=== PATIENT | male | born 1965 | race Caucasian/White ===

== ENCOUNTER → 2020-10-02 | Day surgery (SDC) | payer BC ==
[~2020-10-02] VITALS: Ht 168.9 cm; Wt 102.1 kg
[~2020-10-02] MED LIST: VITAMIN B-150 MG PO; VITAMIN D21250 MCG PO
== END | disposition home or self-care (01) ==
LOC: OR 09-18 09:45
DX: Z12.11 Encounter for screening for malignant neoplasm of colon (principal); C18.9 Malignant neoplasm of colon, unspecified; D12.6 Benign neoplasm of colon, unspecified; Z20.822 Contact with and (suspected) exposure to COVID-19; K64.4 Residual hemorrhoidal skin tags
CPT/HCPCS: J2250; J2704; J7120

== ENCOUNTER → 2020-10-27 | Outpatient (CLI) | payer BC | LOC: CT 10-16 10:00 | DX: C18.9 Malignant neoplasm of colon, unspecified (principal); R59.9 Enlarged lymph nodes, unspecified | CPT/HCPCS: 71260; Q9967 ==

== ENCOUNTER → 2020-12-27 | Day surgery (SDC) | payer BC | END | disposition home or self-care (01) | LOC: OR 06:17 | DX: C18.9 Malignant neoplasm of colon, unspecified (principal); I87.8 Other specified disorders of veins; E66.9 Obesity, unspecified; Z20.822 Contact with and (suspected) exposure to COVID-19; Z68.35 Body mass index [BMI] 35.0-35.9, adult; Z79.899 Other long term (current) drug therapy | CPT/HCPCS: 71045; 77001; C1769; C1788; J0690; J1100; J1642; J2250; J2405; J2704; J3010; J7040; J7120; U0002 ==

== ENCOUNTER → 2021-06-04 | Outpatient (CLI) | payer BC ==
[2021-06-04 10:13] LABS: HEMOGLOBIN 14.7 gm/dl (14.0-17.5); RED BLOOD COUNT 5.03 M/UL (4.20-5.50); WHITE BLOOD COUNT 5.7 K/UL (4.5-11.0)
[2021-06-04 10:51] LABS: BUN/CREATININE RATIO 22 (0-10)
== END ==
LOC: CT 05-24 14:00
PROVIDERS: Internal Medicine Hematology & Oncology
DX: C18.9 Malignant neoplasm of colon, unspecified (principal); R59.0 Localized enlarged lymph nodes; Z90.49 Acquired absence of other specified parts of digestive tract
CPT/HCPCS: 36415; 80053; 82378; 85025; Q9967

== ENCOUNTER → 2021-07-09 | Day surgery (SDC) | payer BC | END | disposition home or self-care (01) | LOC: OR 06:04 | DX: C18.9 Malignant neoplasm of colon, unspecified (principal); Z15.09 Genetic susceptibility to other malignant neoplasm; Z90.49 Acquired absence of other specified parts of digestive tract; Z98.0 Intestinal bypass and anastomosis status; Z92.21 Personal history of antineoplastic chemotherapy; Z80.0 Family history of malignant neoplasm of digestive organs | CPT/HCPCS: J2704; J7120 ==

== ENCOUNTER → 2021-09-28 | Outpatient (CLI) | payer BC | LOC: CT 09:19 | DX: C18.7 Malignant neoplasm of sigmoid colon (principal) | CPT/HCPCS: 71260; Q9967 ==